=== PATIENT | female | born 1970 | race Caucasian/White ===

== ENCOUNTER 2017-09-11 22:36 | Emergency (ER) | payer SELFPAY ==
[2017-09-11 23:13] VITALS: BP 170/78
[2017-09-11] MEDS ORDERED: ONDANSETRON 4 MG TAB.RAPDIS PO ONE (23:44)
[2017-09-11] MEDS ORDERED: ACETAMINOPHEN 325 MG TABLET PO ONE (23:44)
--- NOTE | 2017-09-11 23:49 | ER Document Report ---
ED Flu Like - General Chief Complaint: Headache Stated Complaint: NAUSEA,HEADACHES,CHILLS Time Seen by Provider: 09/11/17 23:43 Mode of Arrival: Ambulatory Information source: Patient Notes: 37-year-old female presents to ED for nausea headache chills. Stomach cramping sore throat sinus pain and pressure since last night. She states her last menstrual period was last . She denies any smoking rarely drinks and no drug. She has a history of high blood pressure. TRAVEL OUTSIDE OF THE [place] IN LAST 30 DAYS: No - HPI Onset: Yesterday Timing/Duration: Persistent Quality of pain: Achy, Cramping Severity: Moderate Pain Level: 4 CO exposure: No Associated symptoms: Body/muscle aches, Chills, Earache, Nausea, Vomiting, Rhinnorhea - 1, Sinus pain/drainage, Sore throat Similar symptoms previously: No Recently seen / treated by doctor: No - Related Data Allergies/Adverse Reactions: aspirin [Aspirin] Allergy (Verified 07/08/11 10:13) Penicillins Allergy (Verified 07/08/11 10:13) Past Medical History - General Information source: Patient - Social History Smoking Status: Never Smoker Cigarette use (# per day): No Chew tobacco use (# tins/day): No Frequency of alcohol use: Rare Drug Abuse: None Occupation: [employer] Lives with: Family Family History: Arthritis. denies: CAD, COPD, CVA, DM, Hyperlipidemia, Hypertension, Malignancy, Thyroid Disfunction Patient has suicidal ideation: No Patient has homicidal ideation: No - Past Medical History Cardiac Medical History: Reports: Hx Hypertension Pulmonary Medical History: Reports: None EENT Medical History: Reports: None Neurological Medical History: Reports: Hx Migraine Endocrine Medical History: Reports: None Renal/ Medical History: Reports: None Malignancy Medical History: Reports: None GI Medical History: Reports: None Musculoskeltal Medical History: Reports None Skin Medical History: Reports None Psychiatric Medical History: Reports: None Traumatic Medical History: Reports: None Infectious Medical History: Reports: None Past Surgical History: Reports: Hx Section - x2, Hx Cholecystectomy, Hx Tubal Ligation - Immunizations Immunizations up to date: Yes Hx Diphtheria, Pertussis, Tetanus Vaccination: Yes Review of Systems - Review of Systems Constitutional: Chills, Recent illness EENT: Ear pain, Nose congestion, Nose discharge, Sinus pressure, Sinus discharge , Throat pain Cardiovascular: No symptoms reported Respiratory: No symptoms reported Gastrointestinal: Abdominal pain, Nausea - Stomach cramping, Vomiting - 1 Genitourinary: No symptoms reported Female Genitourinary: Other - Menstrual cycle started Musculoskeletal: Muscle pain, Muscle stiffness Skin: No symptoms reported - Body aches Hematologic/Lymphatic: No symptoms reported Neurological/Psychological: Headaches -: Yes All other systems reviewed and negative Physical Exam - Vital signs Vitals: Temp Pulse Resp BP Pulse Ox 98.7 F 70 21 H 170/78 H 97 09/11/17 23:10 09/11/17 23:10 09/11/17 23:10 09/11/17 23:10 09/11/17 23:10 Interpretation: Normal - General General appearance: Appears well, Alert - HEENT Head: Normocephalic, Atraumatic Eyes: Normal Pupils: PERRL Ears: Normal External canal: Normal Tympanic membrane: Normal Sinus: Frontal, Tenderness Nasal: Purulent discharge, Swelling Mouth/Lips: Normal Mucous membranes: Normal Pharynx: Erythema, Post nasal drainage. No: Exudate, Peritonsillar abscess, Retropharyngeal abscess, Tonsillar hypertrophy, Uvular edema, Potential airway comprom. Neck: Normal - Respiratory Respiratory status: No respiratory distress Chest status: Nontender Breath sounds: Normal Chest palpation: Normal - Cardiovascular Rhythm: Regular Heart sounds: Normal auscultation Murmur: No - Abdominal Inspection: Normal Distension: No distension Bowel sounds: Normal Tenderness: Nontender Organomegaly: No organomegaly - Back Back: Normal, Nontender - Extremities General upper extremity: Normal inspection, Nontender, Normal color, Normal ROM , Normal temperature General lower extremity: Normal inspection, Nontender, Normal color, Normal ROM , Normal temperature, Normal weight bearing. 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 Patient's neuro assessment negative. - Vital Signs Vital signs: Temp Pulse Resp BP Pulse Ox 98.7 F 70 21 H 170/78 H 97 09/11/17 23:10 09/11/17 23:10 09/11/17 23:10 09/11/17 23:10 09/11/17 23:10 Discharge - Discharge Clinical Impression: Viral illness URI (upper respiratory infection) Qualifiers: URI type: unspecified URI Qualified Code(s): J06.9 - Acute upper respiratory infection, unspecified Condition: Stable Disposition: HOME, SELF-CARE Instructions: Family Physicians / Practices Additional Instructions: Viral Syndrome The physician has diagnosed a viral infection. Viruses not only cause "colds," but can cause many different symptoms including generalized aching, fever, headache, cough, diarrhea, nausea, vomiting, and fatigue. The treatment, for the most part, is simply relief of symptoms. This means that antibiotics are usually not given. Rest, fluids, pain medications and, occasionally, medication for the specific symptoms that are most bothersome will be prescribed. Use good handwashing to avoid passing the virus to others. Shared toys should be cleaned with disinfectant. Clean the toilets, sinks, and counter surfaces in bathrooms. Launder clothing in hot water. Contact the physician if you develop any new or unusual symptoms such as severe headache, stiff neck, high fever, chest pain, productive cough, or shortness of breath. You should be rechecked if you don't see marked improvement within seven to 10 days. UPPER RESPIRATORY ILLNESS: You have a viral infection of the respiratory passages -- a "cold." This common infection causes nasal congestion, drainage, and often sore throat and cough. It is highly contagious. The disease usually lasts about 10 to 14 days. There is no "cure" for the viral infection -- it must run its course. If there is a complication, such as bacterial infection in the nose, sinuses, middle ear, or bronchial tubes, antibiotics may be required. The antibiotics won't affect the virus. Drink plenty of fluids. A humidifier may help. An expectorant medication or decongestant may make you more comfortable. Use acetaminophen or ibuprofen for fever or aches. See the doctor if fever persists over two days, if there is any significant worsening of your symptoms, or if you simply fail to improve as expected. COUGH-SUPPRESSANT & EXPECTORANT MEDICATION: You are to use a cough medication as needed for relief of symptoms. This medicine is a combination of an expectorant (to make the mucous thinner and more easily "coughed up") and a cough suppressant (to reduce the frequency of coughing). The cough-suppressant medicine is related to narcotics. You may experience mild nausea and sleepiness. Some patients who are very sensitive to narcotics may have stomach pain from this medicine. Taking the medicine with food reduces these side effects. Do not drive or work with machinery until you know how this medicine affects you. The expectorant should have no side effects. Iodine-containing expectorants (such as organidin) should not be taken by persons with active thyroid disease unless approved by your doctor. Call the doctor if you develop shortness of breath, hives, rash, itching, lightheadedness, or severe nausea and vomiting. USE OF ACETAMINOPHEN (Tylenol): Acetaminophen may be taken for pain relief or fever control. It's much safer than aspirin, offering a wider range of "safe" dosages. It is safe during . Some brand names are Tylenol, Panadol, Datril, Anacin 3, Tempra, and Liquiprin. Acetaminophen can be repeated every four hours. The following are maximum recommended dosages: >89 pounds or adults 650 mg to 900 mg Acetaminophen can be repeated every four hours. Maximum dose not to exceed 4000 mg a day. Antinausea Medication You have been given a medication to suppress nausea and vomiting. This type of medication can be given as a shot, pill, or suppository. It will usually last for many hours. Pills and shots usually last six to eight hours, suppositories last about 12 hours. For the typical illness, only one or two doses of the medication may be necessary. Mild lightheadedness may occur. This type of medicine can cause drowsiness. Do not drive or operate dangerous machinery while under its influence. Do not mix with alcohol. See your doctor at once if you have muscle spasms or tightness, or uncontrollable motions (particularly of the neck, mouth, or jaw). Persistent vomiting or severe lightheadedness should also be evaluated by the physician. FOLLOW-UP CARE: If you have been referred to a physician for follow-up care, call the physician s office for an appointment as you were instructed or within the next two days. If you experience worsening or a significant change in your symptoms, notify the physician immediately or return to the Emergency Department at any time for re-evaluation. Prescriptions: Ondansetron [Zofran Odt 4 mg Tablet] 1 tab PO Q6H #15 tab.rapdis Forms: Return to Work
[2017-09-12 00:23] LABS: A TYPE INFLUENZA AG NEGATIVE (NEGATIVE); B INFLUENZA AG NEGATIVE (NEGATIVE)
== END 2017-09-12 00:34 | disposition home or self-care (01) ==
LOC: ER 22:36
DX: J06.9 Acute upper respiratory infection, unspecified (principal); B34.9 Viral infection, unspecified; R51 Headache; R11.0 Nausea; J02.9 Acute pharyngitis, unspecified; R11.2 Nausea with vomiting, unspecified
CPT/HCPCS: 99284; 87070; 87880; 87804; S0119

== ENCOUNTER 2018-03-14 09:48 | Emergency (ER) | payer BC ==
[2018-03-14] MEDS ORDERED: ACETAMINOPHEN 325 MG TABLET PO ONE (11:01)
--- NOTE | 2018-03-14 11:03 | ER Document Report ---
ED Medical Screen (RME) - General Chief Complaint: High Blood Pressure Stated Complaint: BLOOD PRESSURE ISSUE, DIZZY, NAUSEA Time Seen by Provider: 03/14/18 11:01 Notes: 47 years old female presents today with elevated blood pressure for the last 2 days, associated with headache dizziness almost passing out sensation. Today just prior to arrival and was having substernal chest pain. Not associated with any left arm numbness tingling sensation palpitation or diaphoresis. Examination appear to be anxious. Otherwise normal. TRAVEL OUTSIDE OF THE [place] IN LAST 30 DAYS: No - Related Data Allergies/Adverse Reactions: aspirin [Aspirin] Allergy (Verified 07/08/11 10:13) Penicillins Allergy (Verified 07/08/11 10:13) Past Medical History - Past Medical History Cardiac Medical History: Reports: Hx Hypertension Denies: Hx Congestive Heart Failure Pulmonary Medical History: Denies: Hx Asthma, Hx COPD, Hx Pneumonia Neurological Medical History: Reports: Hx Migraine Renal/ Medical History: Denies: Hx Peritoneal Dialysis Past Surgical History: Reports: Hx Section - x2, Hx Cholecystectomy, Hx Tubal Ligation - Immunizations Immunizations up to date: Yes Hx Diphtheria, Pertussis, Tetanus Vaccination: Yes Physical Exam - Vital signs Vitals: Temp Pulse Resp BP Pulse Ox 98.6 F 76 14 147/79 H 96 03/14/18 10:03/14/18 10:03/14/18 10:03/14/18 10:03/14/18 10:17 Course - Vital Signs Vital signs: Temp Pulse Resp BP Pulse Ox 98.6 F 76 14 147/79 H 96 03/14/18 10:03/14/18 10:17 03/14/18 10:17 03/14/18 10:17 03/14/18 10:17
[2018-03-14 12:17] LABS: ABSOLUTE LYMPHOCYTES (AUTO) 2.2 10^3/uL (0.5-4.7); ABSOLUTE MONOCYTES (AUTO) 0.3 10^3/uL (0.1-1.4); ABSOLUTE NEUT (AUTO) 3.6 10^3/uL (1.7-8.2); BASOPHILS % (AUTO) 0.8 % (0-2); EOSINOPHILS % (AUTO) 0.5 % (0-6); HEMATOCRIT 41.1 % (36.0-47.0); LYMPHOCYTES % (AUTO) 35.4 % (13-45); MEAN CORPUSCULAR HEMOGLOBIN 28.4 pg (27.0-33.4); MEAN CORPUSCULAR HGB CONC 34.1 g/dL (32.0-36.0); MEAN CORPUSCULAR VOLUME 83 fl (80-97); MONOCYTES % (AUTO) 4.9 % (3-13); PLATELET COUNT 240 10^3/uL (150-450); RED BLOOD COUNT 4.93 10^6/uL (3.72-5.28); RED CELL DISTRIBUTION WIDTH 13.8 % (11.5-14.0); SEGMENTED NEUTROPHILS % (AUTO) 58.4 % (42-78); TOTAL CELLS COUNTED % (AUTO) 100 %; WHITE BLOOD COUNT 6.1 10^3/uL (4.0-10.5)
--- NOTE | 2018-03-14 12:18 | RADIOLOGY REPORT (SQ) ---
EXAM DESCRIPTION: CHEST SINGLE VIEW COMPLETED DATE/TIME: 03/14/2018 12:03 pm REASON FOR STUDY: Chest pain COMPARISON: None. EXAM PARAMETERS: NUMBER OF VIEWS: One view. TECHNIQUE: Single frontal radiographic view of the chest acquired. RADIATION DOSE: NA LIMITATIONS: None. FINDINGS: LUNGS AND PLEURA: No opacities, masses or pneumothorax. No pleural effusion. MEDIASTINUM AND HILAR STRUCTURES: No masses. Contour normal. HEART AND VASCULAR STRUCTURES: Heart normal in size. Normal vasculature. BONES: No acute findings. HARDWARE: None in the chest. OTHER: No other significant finding. IMPRESSION: NO ACUTE RADIOGRAPHIC FINDING IN THE CHEST. TECHNICAL DOCUMENTATION: JOB ID: [id number] [employer]- All Rights Reserved Reading location - IP/workstation name: [email or web address] INCLUDES THE [facility]-[email or web address]
--- NOTE | 2018-03-14 13:35 | EKG REPORT ---
SEVERITY:- ABNORMAL ECG - SINUS RHYTHM LEFT VENTRICULAR HYPERTROPHY BORDERLINE T ABNORMALITIES, INFERIOR LEADS : Confirmed by: Vielka Courtney MD 14-Mar-2018 13:34:36
[2018-03-14 14:09] VITALS: BP 137/74
[2018-03-14] MEDS ORDERED: PROCHLORPERAZINE EDISYLATE INJ 10 MG/2 ML VIAL IV ONE (14:44)
[2018-03-14] MEDS ORDERED: ONDANSETRON HCL INJ/PF 4 MG/2 ML SDV IV ONE (14:44)
[2018-03-14] MEDS ORDERED: RINGERS SOLUTION,LACTATED 1,000 ML IV ONE (14:44)
--- NOTE | 2018-03-14 14:44 | ER Document Report ---
ED General - General Chief Complaint: High Blood Pressure Stated Complaint: BLOOD PRESSURE ISSUE, DIZZY, NAUSEA Time Seen by Provider: 03/14/18 11:01 TRAVEL OUTSIDE OF THE [place] IN LAST 30 DAYS: No - HPI Patient complains to provider of: High blood pressure nausea dizziness Notes: Patient coming in for evaluation of dizziness and elevated blood pressure.Patient states few days prior to arrival had possibly been associated with food poisoning causing nausea vomiting diarrhea. Patient states continues to feel off the dizzy went to a local urgent care today was told to come to the ER immediately because of her blood pressure being in the 160s systolically. Patient states compliance with her blood pressure medication losartan. Patient did mention to the [facility] providers having some substernal chest pain however this time is pain-free. Patient denies any other medical issues no smoking no alcohol use. Patient denies any recent antibiotics or recent travel. Resting company upon my evaluation. Patient states no etiologies for exacerbation of her symptoms does not increase with standing or movement. Patient denies any drug abuse. Patient denies fevers or chills. - Related Data Allergies/Adverse Reactions: aspirin [Aspirin] Allergy (Verified 03/14/18 13:58) Penicillins Allergy (Verified 03/14/18 13:58) Past Medical History - Social History Smoking Status: Never Smoker Family History: Arthritis. denies: CAD, COPD, CVA, DM, Hyperlipidemia, Hypertension, Malignancy, Thyroid Disfunction Patient has suicidal ideation: No Patient has homicidal ideation: No - Past Medical History Cardiac Medical History: Reports: Hx Hypertension Denies: Hx Congestive Heart Failure Pulmonary Medical History: Denies: Hx Asthma, Hx COPD, Hx Pneumonia Neurological Medical History: Reports: Hx Migraine Renal/ Medical History: Denies: Hx Peritoneal Dialysis Past Surgical History: Reports: Hx Section - x2, Hx Cholecystectomy, Hx Tubal Ligation - Immunizations Immunizations up to date: Yes Hx Diphtheria, Pertussis, Tetanus Vaccination: Yes Review of Systems - Review of Systems Constitutional: Other - Nausea dizziness EENT: No symptoms reported Cardiovascular: No symptoms reported Respiratory: No symptoms reported Gastrointestinal: No symptoms reported Genitourinary: No symptoms reported Female Genitourinary: No symptoms reported Musculoskeletal: No symptoms reported Skin: No symptoms reported Hematologic/Lymphatic: No symptoms reported Neurological/Psychological: No symptoms reported -: Yes All other systems reviewed and negative Physical Exam - Vital signs Vitals: Temp Pulse Resp BP Pulse Ox 98.6 F 76 14 147/79 H 96 03/14/18 10:17 03/14/18 10:17 03/14/18 10:17 03/14/18 10:17 03/14/18 10:17 Interpretation: Normal - General General appearance: Appears well, Alert - HEENT Head: Normocephalic, Atraumatic Eyes: Normal Pupils: PERRL - Respiratory Respiratory status: No respiratory distress Chest status: Nontender Breath sounds: Normal Chest palpation: Normal - Cardiovascular Rhythm: Regular Heart sounds: Normal auscultation Murmur: No - Abdominal Inspection: Normal Distension: No distension Bowel sounds: Normal Tenderness: Nontender Organomegaly: No organomegaly - Back Back: Normal, Nontender - Extremities General upper extremity: Normal inspection, Nontender, Normal color, Normal ROM , Normal temperature General lower extremity: Normal inspection, Nontender, Normal color, Normal ROM , Normal temperature, Normal weight bearing. No: Allison's sign - Neurological Neuro grossly intact: Yes Cognition: Normal Orientation: AAOx4 [place] Coma Scale Eye Opening: Spontaneous [place] Coma Scale Verbal: Oriented [place] Coma Scale Motor: Obeys Commands [place] Coma Scale Total: 15 Speech: Normal Motor strength normal: LUE, RUE, LLE, RLE Sensory: Normal - Psychological Associated symptoms: Normal affect, Normal mood - Skin Skin Temperature: Warm Skin Moisture: Dry Skin Color: Normal Course - Re-evaluation Re-evalutation: 03/14/18 22:27 Notified by nursing staff the patient requested to leave AGAINST MEDICAL ADVICE that she needed to order picker her son. Is unable to interview to the patient prior to her signing out AGAINST MEDICAL ADVICE. Laboratory studies and physical examination did not reveal any critical pathology upon my initial evaluation. - Vital Signs Vital signs: Temp Pulse Resp BP Pulse Ox 98.6 F 76 18 137/74 H 99 03/14/18 10:17 03/14/18 10:17 03/14/18 14:01 03/14/18 14:01 03/14/18 14:01 - Laboratory Result Diagrams: 03/14/18 11:46 03/14/18 11:46 Laboratory results interpreted by me: 03/14/18 11:46 Urine Blood LARGE H Discharge - Discharge Clinical Impression: Nausea and vomiting Condition: Stable Disposition: AGAINST MEDICAL ADVICE
[2018-03-14 15:18] LABS: URINE AMPHETAMINES SCREEN NEGATIVE; URINE BARBITURATES SCREEN NEGATIVE; URINE BENZODIAZEPINES SCREEN NEGATIVE; URINE COCAINE SCREEN NEGATIVE; URINE MARIJUANA (THC) SCREEN NEGATIVE; URINE METHADONE SCREEN NEGATIVE; URINE PHENCYCLIDINE SCREEN NEGATIVE
[2018-03-14 15:33] LABS: APPEARANCE,URINE CLEAR; BILIRUBIN,URINE NEGATIVE (NEGATIVE); COLOR,URINE STRAW; GLUCOSE, URINE NEGATIVE (NEGATIVE); KETONES,URINE NEGATIVE (NEGATIVE); LEUKOCYTE ESTERASE,URINE NEGATIVE (NEGATIVE); NITRITE,URINE NEGATIVE (NEGATIVE); PROTEIN,URINE NEGATIVE (NEGATIVE); URINE SPECIFIC GRAVITY 1.012; UROBILINOGEN,URINE NEGATIVE mg/dL (<2.0)
== END 2018-03-14 15:40 | disposition left against medical advice (07) ==
LOC: ER 09:48
DX: R11.2 Nausea with vomiting, unspecified (principal); I10 Essential (primary) hypertension; R42 Dizziness and giddiness
CPT/HCPCS: 36415; 71045; 80307; 81001; 81025; 85025; 93005; 93010; 99284

== ENCOUNTER 2019-06-17 13:49 | Emergency (ER) | payer BC ==
--- NOTE | 2019-06-17 14:06 | ER Document Report ---
ED Medical Screen (RME) - General Chief Complaint: Numbness Stated Complaint: BODY NUMBNESS Time Seen by Provider: 06/17/19 14:03 Mode of Arrival: Wheelchair Information source: Patient Notes: Patient presents complaining of left arm numbness and stiffness for the past 3 to 4 days. Patient states that she has had some left-sided headache as well with tingling to the fingers of both hands. Patient reports feeling lightheaded and faint. Patient very anxious in triage. I have greeted and performed a rapid initial assessment of this patient. A comprehensive ED assessment and evaluation of the patient, analysis of test results and completion of the medical decision making process will be conducted by additional ED providers. TRAVEL OUTSIDE OF THE [place] IN LAST 30 DAYS: No - Related Data Allergies/Adverse Reactions: aspirin [Aspirin] Allergy (Verified 06/17/19 14:04) Penicillins Allergy (Verified 06/17/19 14:04) Home Medications: Losartan Past Medical History - Social History Chew tobacco use (# tins/day): No Frequency of alcohol use: Rare Drug Abuse: None - Past Medical History Cardiac Medical History: Reports: Hx Hypertension Denies: Hx Congestive Heart Failure Pulmonary Medical History: Denies: Hx Asthma, Hx COPD, Hx Pneumonia Neurological Medical History: Reports: Hx Migraine Renal/ Medical History: Denies: Hx Peritoneal Dialysis Past Surgical History: Reports: Hx Section - x2, Hx Cholecystectomy, Hx Tubal Ligation - Immunizations Immunizations up to date: Yes Hx Diphtheria, Pertussis, Tetanus Vaccination: Yes Physical Exam - Vital signs Vitals: Temp Pulse Resp BP Pulse Ox 98.6 F 87 22 H 152/80 H 98 06/17/19 13:57 06/17/19 13:57 06/17/19 13:57 06/17/19 13:57 06/17/19 13:57 - General General appearance: Alert, Anxious 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
--- NOTE | 2019-06-17 14:32 | RADIOLOGY REPORT (SQ) ---
EXAM DESCRIPTION: CHEST SINGLE VIEW COMPLETED DATE/TIME: 06/17/2019 2:26 pm REASON FOR STUDY: NAYAK, arm numbness COMPARISON: 03/14/2018 EXAM PARAMETERS: NUMBER OF VIEWS: One view. TECHNIQUE: Single frontal radiographic view of the chest acquired. RADIATION DOSE: NA LIMITATIONS: None. FINDINGS: LUNGS AND PLEURA: No opacities, masses or pneumothorax. No pleural effusion. MEDIASTINUM AND HILAR STRUCTURES: No masses. Contour normal. HEART AND VASCULAR STRUCTURES: Heart normal in size. Normal vasculature. BONES: No acute findings. HARDWARE: None in the chest. OTHER: No other significant finding. IMPRESSION: NO ACUTE RADIOGRAPHIC FINDING IN THE CHEST. TECHNICAL DOCUMENTATION: JOB ID: [id number] [employer]- All Rights Reserved Reading location - IP/workstation name: [email or web address]
--- NOTE | 2019-06-17 15:23 | RADIOLOGY REPORT (SQ) ---
EXAM DESCRIPTION: CT HEAD WITHOUT COMPLETED DATE/TIME: 06/17/2019 2:50 pm REASON FOR STUDY: NAYAK, arm numbness COMPARISON: None. TECHNIQUE: Axial images acquired through the brain without intravenous contrast. Images reviewed wi th bone, brain and subdural windows. Images stored on PACS. All CT scanners at this facility use dose modulation, iterative reconstruction, and/or weight based d osing when appropriate to reduce radiation dose to as low as reasonably achievable (ALARA). [facility]: Dose Right [facility]: CareDose [facility]: Dose Right [facility]: Teradose 4D [facility]: Smart [employer] RADIATION DOSE: CT Rad equipment meets quality standard of care and radiation dose reduction techniq ues were employed. CTDIvol: 53.2 mGy. DLP: 1097 mGy-cm. mGy. LIMITATIONS: None. FINDINGS: VENTRICLES: Normal size and contour. CEREBRUM: No masses. No hemorrhage. No midline shift. No evidence for acute infarction. Normal gra y/white matter differentiation. No areas of low density in the white matter. CEREBELLUM: No masses. No hemorrhage. No alteration of density. No evidence for acute infarction. EXTRAAXIAL SPACES: No fluid collections. No masses. ORBITS AND GLOBE: No intra- or extraconal masses. Normal contour of globe without masses. CALVARIUM: No fracture. PARANASAL SINUSES: Minimal mucosal thickening frontal sinuses. SOFT TISSUES: No mass or hematoma. OTHER: No other significant finding. IMPRESSION: NORMAL BRAIN CT WITHOUT CONTRAST. EVIDENCE OF ACUTE STROKE: NO. COMMENT: Quality ID # [id number]: Final reports with documentation of one or more dose reduction techniques (e.g., Automated exposure control, adjustment of the mA and/or kV according to patient size, use of iterative reconstruction technique) TECHNICAL DOCUMENTATION: JOB ID: [id number] [place]-69 2010 [employer]- All Rights Reserved Reading location - IP/workstation name: [email or web address]
--- NOTE | 2019-06-17 15:59 | ER Document Report ---
ED General - General Chief Complaint: Numbness Stated Complaint: BODY NUMBNESS Time Seen by Provider: 06/17/19 14:03 Primary Care Provider: YOCASTA RUTLEDGE MD [Primary Care Provider] - Follow up as needed Mode of Arrival: Wheelchair TRAVEL OUTSIDE OF THE [place] IN LAST 30 DAYS: No - HPI Notes: 48 y.o. female c/o 3 day hx. left side numbness. Relatively insidious onset of symptoms primarily involving the left upper extremity. Patient reports intermittent sharp and tingling sensation from shoulder to tips of ring and small finger of the nondominant left hand. Episodes last 3 to 4 seconds at a time. Aggravated by movement. Worse later in the day. She denies trauma. 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 Also reports that on occasion she seems to experience some swelling of the lateral aspect of the left wrist and hand. She denies any normal. She occasionally gets sharp twinges of pain in the left shoulder and the back of the neck on the left side. Patient has a history of hypertension for which she is taking losartan. Patient is a non-smoker. She does not have any history of diabetes or hyperlipidemia. She does not have any history of any type of collagen vascular disease. Family history is negative for cerebrovascular disease. - Related Data Allergies/Adverse Reactions: aspirin [Aspirin] Allergy (Verified 06/17/19 14:04) Penicillins Allergy (Verified 06/17/19 14:04) Home Medications: Losartan Past Medical History - General Information source: Patient - Social History Smoking Status: Never Smoker Chew tobacco use (# tins/day): No Frequency of alcohol use: Rare Drug Abuse: None Lives with: Family Family History: Arthritis. denies: CAD, COPD, CVA, DM, Hyperlipidemia, Hypertension, Malignancy, Thyroid Disfunction Patient has suicidal ideation: No Patient has homicidal ideation: No - Past Medical History Cardiac Medical History: Reports: Hx Hypertension Denies: Hx Congestive Heart Failure Pulmonary Medical History: Denies: Hx Asthma, Hx COPD, Hx Pneumonia Neurological Medical History: Reports: Hx Migraine Renal/ Medical History: Denies: Hx Peritoneal Dialysis Traumatic Medical History: Reports: None Past Surgical History: Reports: Hx Section - x2, Hx Cholecystectomy, Hx Tubal Ligation - Immunizations Immunizations up to date: Yes Hx Diphtheria, Pertussis, Tetanus Vaccination: Yes Review of Systems - Review of Systems Notes: Constitutional: Negative for fever. HENT: Negative for sore throat. Eyes: Negative for visual changes. Cardiovascular: Negative for chest pain. Respiratory: Negative for shortness of breath. Gastrointestinal: Negative for abdominal pain, vomiting or diarrhea. Genitourinary: Negative for dysuria. Musculoskeletal: Negative for back pain. Skin: Negative for rash. Neurological: As noted in history of present illness. Occasional headaches. 10 point ROS negative except as marked above and in HPI. Physical Exam - Vital signs Vitals: Temp Pulse Resp BP Pulse Ox 98.6 F 87 22 H 152/80 H 98 06/17/19 13:57 06/17/19 13:57 06/17/19 13:57 06/17/19 13:57 06/17/19 13:57 Notes: GENERAL: Well-developed well-nourished appearing in no acute distress. SKIN: Good turgor no rashes. HEAD: Normocephalic atraumatic. EYES: PERRLA. EOMI. Conjunctivae and sclerae clear. EARS: CANALS AND TMS CLEAR. NOSE: CLEAR. MOUTH: Moist mucosa. Good dentition. No stridor or edema. No drooling. Throat: Clear. NECK: Supple. Mild crepitus. Muscular spasm posterior cervical area. No masses or thyromegaly. No adenopathy. Carotids 2+ without bruits. No JVD. BACK: Symmetrical without tenderness. CHEST: Respirations unlabored. Breath sounds clear and symmetrical. HEART: Regular rhythm. No murmur gallop or rub. ABDOMEN: Soft nontender without masses, organomegaly or rebound. Bowel sounds normally active. No bruits. GENITALIA: Deferred. EXTREMITIES: No edema. No calf tenderness. Cap refill less than 1.5 seconds. Radial and ulnar pulses 3+ both upper extremities. Dorsalis pedis and posterior tibial pulses 3+ and symmetrical. NEUROLOGICAL: GCS 15. Alert and oriented x3. Normal gait. Fluent speech. Cranial nerves II through XII intact. Sensory, motor and cerebellar normal. Normal tone. Deep tendon reflexes are 2+ throughout with the exception of the left biceps which is 3+. Psychiatric: Very anxious. Course - Re-evaluation Re-evalutation: 06/17/19 16:11 Overall presentation is most suggestive of a cervical radiculitis. Head CT was reported as normal. EKG is nonspecific and unchanged from old tracing. Pending studies at this time include CBC comprehensive metabolic profile, troponin and plain films of the cervical spine. 06/17/19 17:31 Labs unremarkable. Graphic findings of advanced hypertrophic/degenerative changes from C5-C7. Findings are highly suggestive of cervical radiculitis. Patient stable for outpatient treatment can follow-up with her primary care physician regarding possible additional need for physiotherapy. - Vital Signs Vital signs: Temp Pulse Resp BP Pulse Ox 98.6 F 87 22 H 152/80 H 99 06/17/19 13:57 06/17/19 15:00 06/17/19 15:00 06/17/19 15:00 06/17/19 15:02 - Laboratory Result Diagrams: 06/17/19 15:46 06/17/19 15:46 - Diagnostic Test Radiology reviewed: Reports reviewed Discharge - Discharge Clinical Impression: Cervical spondylitis with radiculitis Condition: Stable Disposition: HOME, SELF-CARE Additional Instructions: Radiculopathy Radiculopathy is irritation of a nerve. Sometimes this is called "pinched nerve." The pain can be sharp and stabbing, constant and dull, or burning in nature. The pain can occur in any area of the chest, shoulders, or arms. Sometimes the pain is provoked by coughing or moving. Radiculopathy can be caused by physical pressure on a nerve, such as a herniated disc or swollen joint in the spine. It can also be caused by viral infections within the nerve or by nerve damage due to diabetes or blood vessel disease. Radicular pain is treated with antiinflammatory medicine. Injections may help resistant cases, if we can identify a single nerve that's causing the pain. Surgery is usually not necessary. If symptoms do not improve with time, you may need additional testing, such as an MRI or EMG (electromyogram). Return if there is local weakness or numbness, shortness of breath, increasing pain, or other new symptoms. Prescriptions: Indomethacin [Indocin 50 Mg Capsule] 50 mg PO TID 10 Days #30 capsule Forms: Return to Work Referrals: YOCASTA RUTLEDGE MD [Primary Care Provider] - Follow up as needed
[2019-06-17 16:04] LABS: PROTHROMBIN TIME 13.2 SEC (11.4-15.4)
[2019-06-17 16:05] LABS: PARTIAL THROMBOPLASTIN TIME 27.8 SEC (23.5-35.8)
[2019-06-17 16:07] LABS: ABSOLUTE LYMPHOCYTES (AUTO) 1.8 10^3/uL (0.5-4.7); ABSOLUTE MONOCYTES (AUTO) 0.3 10^3/uL (0.1-1.4); ABSOLUTE NEUT (AUTO) 7.1 10^3/uL (1.7-8.2); BASOPHILS % (AUTO) 0.2 % (0-2); EOSINOPHILS % (AUTO) 0.1 % (0-6); HEMATOCRIT 38.9 % (36.0-47.0); HEMOGLOBIN 13.6 g/dL (12.0-15.5); LYMPHOCYTES % (AUTO) 19.2 % (13-45); MEAN CORPUSCULAR HEMOGLOBIN 28.6 pg (27.0-33.4); MEAN CORPUSCULAR HGB CONC 34.9 g/dL (32.0-36.0); MEAN CORPUSCULAR VOLUME 82 fl (80-97); MONOCYTES % (AUTO) 3.6 % (3-13); PLATELET COUNT 229 10^3/uL (150-450); RED BLOOD COUNT 4.75 10^6/uL (3.72-5.28); RED CELL DISTRIBUTION WIDTH 13.3 % (11.5-14.0); SEGMENTED NEUTROPHILS % (AUTO) 76.9 % (42-78); TOTAL CELLS COUNTED % (AUTO) 100 %; WHITE BLOOD COUNT 9.3 10^3/uL (4.0-10.5)
[2019-06-17 16:22] LABS: ALBUMIN 4.3 g/dL (3.5-5.0); ALKALINE PHOSPHATASE 80 U/L (38-126); ANION GAP 10 (5-19); ASPARTATE AMINO TRANSFERASE 17 U/L (14-36); BILIRUBIN,DIRECT 0.2 mg/dL (0.0-0.4); BILIRUBIN,TOTAL 0.5 mg/dL (0.2-1.3); BLOOD UREA NITROGEN 11 mg/dL (7-20); CALCIUM 9.7 mg/dL (8.4-10.2); CARBON DIOXIDE 25 mmol/L (22-30); CHLORIDE 104 mmol/L (98-107); CREATINE KINASE 45 U/L (30-135); GLUCOSE 95 mg/dL (75-110); POTASSIUM 3.9 mmol/L (3.6-5.0); TOTAL PROTEIN 7.6 g/dL (6.3-8.2)
[2019-06-17 16:34] LABS: CREATINE KINASE MB 0.46 ng/mL (<4.55)
[2019-06-17 16:39] LABS: TROPONIN I < 0.012 ng/mL
--- NOTE | 2019-06-17 17:02 | RADIOLOGY REPORT (SQ) ---
EXAM DESCRIPTION: CERV SP 4 OR 5 VIEWS COMPLETED DATE/TIME: 06/17/2019 4:30 pm REASON FOR STUDY: cervical radiculitis COMPARISON: None. NUMBER OF VIEWS: Five views. TECHNIQUE: AP, lateral, obliques and odontoid radiographic images acquired of the cervical spine. LIMITATIONS: None. FINDINGS: MINERALIZATION: Normal. ALIGNMENT: Anatomic. VERTEBRAE: Vertebral bodies of normal height. DISCS: Degenerative disc disease C5-6 and C6-7 with osteophytes and disc space narrowing. FORAMINA: No osteophytes or foraminal narrowing. LATERAL AND POSTERIOR ELEMENTS: Facets, lateral masses and spinous processes without significant find ings. HARDWARE: None in the spine. SOFT TISSUES: No masses or calcifications. Lung apices clear. OTHER: No other significant finding. IMPRESSION: C5-6 and C6-7 degenerative disc disease. TECHNICAL DOCUMENTATION: JOB ID: [id number] [employer]- All Rights Reserved Reading location - IP/workstation name: [email or web address]
[2019-06-17 18:53] VITALS: BP 138/89
--- NOTE | 2019-06-17 23:14 | EKG REPORT ---
SEVERITY:- BORDERLINE ECG - SINUS RHYTHM BORDERLINE T ABNORMALITIES, INFERIOR LEADS : Confirmed by: Reynaldo Pavon 17-Jun-2019 23:13:52
== END 2019-06-17 18:53 | disposition home or self-care (01) ==
LOC: ER 13:49
DX: M46.92 Unspecified inflammatory spondylopathy, cervical region (principal); M50.122 Cervical disc disorder at C5-C6 level with radiculopathy; R20.2 Paresthesia of skin; M62.838 Other muscle spasm; R51 Headache; I10 Essential (primary) hypertension; Z79.899 Other long term (current) drug therapy; Z88.8 Allergy status to other drugs, medicaments and biological substances; Z88.0 Allergy status to penicillin
CPT/HCPCS: 36415; 70450; 71045; 72050; 80053; 82550; 82553; 84484; 84703; 85025; 85610; 85730; 93005; 93010; 99284